=== PATIENT | male | born 1985 | race Caucasian/White ===

== ENCOUNTER → 2020-09-25 15:42 | Outpatient (CLI) | payer BC, SELFPAY ==
--- NOTE | 2020-09-25 15:47 | CT_ITS ---
STUDY: CT MAXILLOFACIAL SINUSES REASON FOR EXAM: Male, 34 years old. SINUSITIS RADIATION DOSAGE (If Supplied By Facility): CTDIvol = ( 33.06 ) mGy, DLP = ( 862.77 ) mGycm TECHNIQUE: The patient was scanned in a multi detector CT scanner. High resolution axial imaging was performed without the administration of intravenous contrast material. Sagittal and coronal images were reconstructed. Individualized dose optimization techniques were used for this CT. COMPARISON: None. FINDINGS: FRONTAL SINUSES: Normal aeration, without mucosal inflammatory disease. ETHMOIDAL SINUSES: Normal aeration, without mucosal inflammatory disease. MAXILLARY SINUSES: Postoperative changes with partial resection of the medial wall of the left maxillary sinus consistent with degenerative surgery. There is minimal mucosal thickening through the left maxillary sinus, likely sequela of sinusitis. Otherwise clear paranasal sinuses with no air-fluid level. SPHENOIDAL SINUSES: Normal aeration, without mucosal inflammatory disease. There is patency of the right maxillary infundibuli with normal uncinate processes, ethmoid bullae, and hiatus semilunaris. Status post resection on the left. Normal right-sided turbinates. Status post resection of the left middle turbinate. Normal midline nasal septum. There is patency of the bilateral nasal airways. The visualized osseous structures are normal. The visualized bilateral orbital contents are normal. CT/Sinus/Facial Bone IMPRESSION: Postoperative changes as described with minimal residual mucosal thickening through the left maxillary sinus. Otherwise clear paranasal sinuses with no signs of sinusitis. Electronically Signed: Zoë Maloney MD at 0:23 EDT , Service support ,
== END ==
PROVIDERS: Referring Provider Otolaryngology; Visit Provider Otolaryngology
DX: J32.9 Chronic sinusitis, unspecified (principal)
CPT/HCPCS: 70486